=== PATIENT | female | born 1970 | race Caucasian/White ===

== ENCOUNTER 2025-01-28 15:45 | Outpatient (CLI) | payer MEDICAID ==
[2025-01-28] MEDS ORDERED: iohexol 300 MG/1 ML 50ml polymer ONE (15:58)
[2025-01-28] MEDS ORDERED: iohexol 300mg/ml 100ml inj. ONE (15:58)
--- NOTE | 2025-01-28 17:21 | RADIOLOGY REPORT ---
Procedure: CT CT CHEST W/ IV CONTRAST 01/28/2025 04:14 PM History: LOCALIZED SWELLING, MASS AND LUMP, NECK Comparison: None Technique: After the uneventful administration of contrast intravenously, CT imaging was performed through the chest. Coronal and sagittal reformations were performed by the technologist. Radiation Dose : CT Dose: CTDI volume is 12.81 mGy. Dose-length product is 104.39 mGy*cm CONTRAST: Type of contrast: Omnipaque 300 Contrast injected: 100 ml Findings: Lower neck: Normal thyroid. Lungs: No focal consolidation. No suspect pulmonary nodules. Mild dependent atelectatic changes. Heart/Vascular Structures: Normal heart size. No pericardial effusion. Lymph Nodes: No adenopathy Pleura: No pleural effusion or significant pneumothorax. Musculoskeletal: No acute osseous abnormality. Soft tissues: Bilateral breast implants. Upper abdomen: Limited portions of the upper abdomen are unremarkable. IMPRESSION: No evidence of acute intrathoracic pathology identified.
--- NOTE | 2025-01-28 17:25 | RADIOLOGY REPORT ---
EXAM: CT CT NECK SOFT TISSUES W/ IV CONTRAST INDICATION: LOCALIZED SWELLING, MASS AND LUMP, NECK Exam Date: 01/28/2025 04:09 PM COMPARISON: None TECHNIQUE: CT of the neck with intravenous contrast. RADIATION DOSE: CTDIvol: 16.87 mGy, DLP: 535.27 mGy*cm CONTRAST: Type of contrast: Omnipaque 300 Contrast injected: 100 ml FINDINGS: There is no evidence of cervical mass lesion, pathologically enlarged lymph nodes or fluid collection. The fat planes of the neck appear intact. The airway and larynx are unremarkable. The parotid, submandibular and thyroid glands are unremarkable. The vascular structures of the neck appear patent. The visualized lung apices are clear. The limited visualized portions of the brain are unremarkable. The osseous structures are unremarkable. IMPRESSION: No evidence of cervical mass lesion, pathologically enlarged lymph nodes or fluid collection.
== END 2025-01-28 23:59 | disposition home or self-care (01) ==
LOC: RAD 15:45
PROVIDERS: ATTEND Surgery
DX: R22.1 Localized swelling, mass and lump, neck (principal)
CPT/HCPCS: 70492; 71260; Q9967